=== PATIENT | female | born 1990 | race Caucasian/White ===

== ENCOUNTER 2017-06-13 18:55 | Emergency (ER) | payer BC ==
[~2017-06-13] VITALS: Ht 152.4 cm; Wt 49.0 kg
[2017-06-13 19:29] VITALS: BP 142/67; PULSE 66; RESP 16; TEMP 98.3; O2SAT 100
[2017-06-13 21:42] VITALS: BP 132/83; PULSE 88; RESP 20; TEMP 98; O2SAT 98
[2017-06-13] MEDS ORDERED: birth control (21:42)
[2017-06-13] MEDS ORDERED: KETOROLAC TROMETHAMINE 60 MG/2 ML (IM) VIAL IM ONE (21:45)
[2017-06-13] MEDS ORDERED: IBUP-232 PO (22:40)
--- NOTE | 2017-06-13 22:41 | RADRPT ---
EXAM DATE/TIME: 06/13/2017 22:18 [place] COMPARISON: No previous studies available for comparison. INDICATIONS : Cephalgia. Patient hit forehead on car door. RADIATION DOSE: 56.35 CTDIvol (mGy) MEDICAL HISTORY : None SURGICAL HISTORY : None. ENCOUNTER: Initial ACUITY: 1 day PAIN SCALE: 6/10 LOCATION: cranial TECHNIQUE: Multiple contiguous axial images were obtained of the head. Using automated exposure control and adj ustment of the mA and/or kV according to patient size, radiation dose was kept as low as reasonably a chievable to obtain optimal diagnostic quality images. DICOM format image data is available electro nically for review and comparison. FINDINGS: CEREBRUM: The ventricles are normal for age. No evidence of midline shift, mass lesion, hemorrhage or acute in farction. No extra-axial fluid collections are seen. POSTERIOR FOSSA: The cerebellum and brainstem are intact. The 4th ventricle is midline. The cerebellopontine angle i s unremarkable. EXTRACRANIAL: The visualized portion of the orbits is intact. SKULL: The calvaria is intact. No evidence of skull fracture. CONCLUSION: Normal examination. Russ Luke MD on June 13, 2017 at 22:38 Board Certified Radiologist. This report was verified electronically.
--- NOTE | 2017-06-13 22:42 | PD ---
HPI Chief Complaint: Head Injury Time Seen by Provider: 21:35 Travel History International Travel<30 days: No Contact w/Intl Traveler<30days: No Traveled to known affect area: No History of Present Illness HPI the patient is 26 years old. She complains of pain in the left forehead after she was hit by an opening car door 2 days prior. She reports a constant migraine. Nonspecific visual changes are reported including blurred vision occasionally. She also complains of dizziness. She took Tylenol however states it does not work for her because she has had multiple prior fractured bones and she has since developed a resistance to it. No loss of consciousness. No numbness tingling or weakness in the extremities. No neck stiffness. PFSH Past Medical History Medical History: Denies Significant Hx Diminished Hearing: No Immunizations Current: Yes Tetanus Vaccination: < 5 Years Influenza Vaccination: No ?: Not LMP: 05/26/17 : 1 Past Surgical History Abdominal Surgery: Yes () Section: Yes Social History Alcohol Use: Yes (socially) Tobacco Use: No Substance Use: No Allergies-Medications (Allergen,Severity, Reaction): Coded Allergies: No Known Allergies (Unverified , 06/13/17) Reported Meds & Prescriptions Reported Meds & Active Scripts Active Ibuprofen 600 Mg Tab 600 Mg PO Q8HR PRN Reported [ control] Review of Systems Except as stated in HPI: all other systems reviewed are Neg General / Constitutional: No: Fever Eyes: No: Photophobia HENT: No: Vertigo Physical Exam Narrative GENERAL: 26-year-old female pleasant well-nourished well-developed no acute distress Vital Signs Date Time Temp Pulse Resp B/P (MAP) Pulse Ox O2 Delivery O2 Flow Rate FiO2 06/13/17 21:42 98.0 88 20 132/83 (99) 98 Room Air 06/13/17 19:29 98.3 66 16 142/67 (92) 100 SKIN: Warm and dry. HEAD: Atraumatic. Normocephalic. There is tenderness overlying the left forehead without appreciable overlying skin change. EYES: Pupils equal and round. No scleral icterus. No injection or drainage. ENT: No nasal bleeding or discharge. Mucous membranes pink and moist. NECK: Trachea midline. No JVD. Supple normal range of motion. CARDIOVASCULAR: Regular rate and rhythm. RESPIRATORY: No accessory muscle use. Clear to auscultation. Breath sounds equal bilaterally. GASTROINTESTINAL: Abdomen soft, non-tender, nondistended. Hepatic and splenic margins not palpable. MUSCULOSKELETAL: Extremities without clubbing, cyanosis, or edema. No obvious deformities. NEUROLOGICAL: Awake and alert. No obvious cranial nerve deficits. Motor grossly within normal limits. Five out of 5 muscle strength in the arms and legs. Normal speech. PSYCHIATRIC: Appropriate mood and affect; insight and judgment normal. Data Data Last Documented VS Vital Signs Date Time Temp Pulse Resp B/P (MAP) Pulse Ox O2 Delivery O2 Flow Rate FiO2 06/13/17 21:42 98.0 88 20 132/83 (99) 98 Room Air Orders Orders Ct Brain W/O Iv Contrast(Rout) (06/13/17 21:42) Ketorolac Inj (Toradol Inj) (06/13/17 21:45) Ed Discharge Order (06/13/17 22:42) [facility] Medical Decision Making Medical Screen Exam Complete: Yes Emergency Medical Condition: Yes Medical Record Reviewed: Yes Differential Diagnosis Intracranial hemorrhage, skull fracture, cerebral contusion, concussion, post concussive syndrome Narrative Course Head CT: no acute disease/evidence injury Patient reassessed at 10:35 PM was found resting comfortable. Results of CT scan discussed as well as potential diagnosis of postconcussive syndrome. The patient is ready for discharge. Return precautions discussed. Diagnosis Primary Impression: Cephalgia Qualified Codes: R51 - Headache Additional Impression: Post concussive syndrome Referrals: Tal Herbert MD PhD call for appointment Med/Other Pt SpecificInfo: Prescription(s) given Scripts Ibuprofen (Ibuprofen) 600 Mg Tab 600 MG PO Q8HR Y for PAIN, #20 TAB 0 Refills Prov: Quintin Barrios MD 06/13/17 Disposition: 01 DISCHARGE HOME Condition: Stable Quintin Barrios MD Jun 13, 2017 22:42
[2017-06-13 22:51] VITALS: RESP 20
== END 2017-06-13 23:05 | disposition home or self-care (01) ==
LOC: NEPD 18:55
DX: R51 Headache (principal); F07.81 Postconcussional syndrome
CPT/HCPCS: 70450; 96372; 99283; J1885